=== PATIENT | male | born 1975 | race Caucasian/White ===

== ENCOUNTER 2017-02-03 20:08 | Emergency (ER) | payer SELFPAY ==
[~2017-02-03] VITALS: Ht 172.7 cm; Wt 123.4 kg
[2017-02-03] MEDS ORDERED: PEN-VEE K,VEET500 MG PO (22:27)
[2017-02-03 22:47] VITALS: BP 214/117
== END 2017-02-03 22:48 | disposition home or self-care (01) ==
LOC: EME 20:08
PROC: 0C92XZZ Drainage of Hard Palate, External Approach (ICD-10-PCS; principal; 2017-02-03)
DX: K04.7 Periapical abscess without sinus (principal)
CPT/HCPCS: 99281; 99283